=== PATIENT | male | born 1970 | race Caucasian/White ===

== ENCOUNTER 2021-06-24 10:44 | Emergency (ER) | payer BC ==
[~2021-06-24] VITALS: Ht 185.4 cm; Wt 179.2 kg
[2021-06-24] MEDS ORDERED: METHOCARBAMOL500 MG PO (11:12)
[2021-06-24] MEDS ORDERED: FELDENE20 MG PO (11:13)
[2021-06-24] MEDS ORDERED: LIPITOR20 MG PO (11:13)
[2021-06-24] MEDS ORDERED: CRESTOR5 MG PO (11:13)
[2021-06-24] MEDS ORDERED: JARDIANCE25 MG PO (11:14)
[2021-06-24] MEDS ORDERED: METHOCARBAMOL750 MG PO (13:58)
[2021-06-24] MEDS ORDERED: METHYLPREDNISOLO4 M1 PO (13:58)
[2021-06-24] MEDS ORDERED: HYDROCODON-ACE1 EA11 PO (13:58)
== END 2021-06-24 14:15 | disposition home or self-care (01) ==
LOC: ED 10:44
DX: M51.16 Intervertebral disc disorders with radiculopathy, lumbar region (principal); Z88.5 Allergy status to narcotic agent; Z79.899 Other long term (current) drug therapy
CPT/HCPCS: 72148; 96372; 99284-25; A9270; J1885

== ENCOUNTER 2022-08-28 09:03 | Emergency (ER) | payer BC ==
[~2022-08-28] VITALS: Ht 185.4 cm; Wt 174.2 kg
[~2022-08-28 09:03] MED LIST: CRESTOR5 MG PO; FELDENE20 MG PO; HYDROCODON-ACE1 EA11 PO; JARDIANCE25 MG PO; LIPITOR20 MG PO; METHOCARBAMOL500 MG PO; METHOCARBAMOL750 MG PO; METHYLPREDNISOLO4 M1 PO
== END 2022-08-28 10:41 | disposition home or self-care (01) ==
LOC: ED 09:03
DX: K59.00 Constipation, unspecified (principal); I10 Essential (primary) hypertension; E78.00 Pure hypercholesterolemia, unspecified; E11.9 Type 2 diabetes mellitus without complications; Z88.5 Allergy status to narcotic agent; Z79.899 Other long term (current) drug therapy
CPT/HCPCS: 99283